=== PATIENT | male | born 1995 | race Caucasian/White ===

== ENCOUNTER → 2021-10-04 | Emergency (ER) | payer BC ==
[~2021-10-04] VITALS: Ht 180.3 cm; Wt 72.6 kg
[~2021-10-04] MED LIST: IBUP-1955 PO
--- NOTE | 2021-10-04 18:37 | NUR ---
L SIDED CHEST DISCOMFORT THAT DOES NOT RADIATE ANYWHERE, PAIN TAKING DEEP BREATHS STARTED AT 1430 WENT TO URGENT CARE AND WAS SENT HERE. PATIENT DENIES NAUSEA AND VOMITTING. PATIENT VITALS WITHIN NORMAL LIMITS. BREATHING IS EVEN AND UNLABORED. PT ATTCHED TO MONITOR. PA AT BEDSIDE.
--- NOTE | 2021-10-04 18:41 | NUR ---
#20G IV ESTABLISHED R AC. LABS WERE COLLECTED AND SENT.
--- NOTE | 2021-10-04 19:00 | NUR ---
COVID ANTIGEN COLLECTED AND SENT TO LAB
[2021-10-04 19:01] LABS: BASOPHILS % (AUTO) 0.4 % (0.0-2.0); EOSINOPHILS % (AUTO) 0.2 % (0.0-6.0); HEMATOCRIT 47 % (39-51); LYMPHOCYTES # (AUTO) 0.9 K/uL (0.8-4.8); LYMPHOCYTES % (AUTO) 12.9 % (20.0-44.0); MEAN CORPUSCULAR HGB CONC 34 g/dl (31.0-36.0); MEAN CORPUSCULAR VOLUME 97 fL (80-96); MONOCYTES # (AUTO) 0.4 K/uL (0.1-1.30); MONOCYTES % (AUTO) 5.7 % (2.0-12.0); NEUTROPHILS # (AUTO) 5.8 K/uL (1.8-8.9); NEUTROPHILS % (AUTO) 80.8 % (43.0-81.0); PLATELET COUNT (AUTO) 185 K/uL (150-450); RED BLOOD CELL COUNT(AUTO) 4.85 MIL/uL (4.5-6.0); WHITE BLOOD COUNT (AUTO) 7.2 K/uL (4.3-11.0)
--- NOTE | 2021-10-04 19:07 | NUR ---
QUARRY MANAGER AT PT'S BEDSIDE
[2021-10-04 19:12] LABS: CALCIUM, SERUM 8.9 mg/dL (8.5-10.1); CARBON DIOXIDE 30 mmol/L (21-32); CHLORIDE 104 mmol/L (98-107); CREATININE 0.8 mg/dL (0.6-1.3); GLUCOSE 92 mg/dL (74-106); POTASSIUM 4.1 mmol/L (3.5-5.1); SODIUM SERUM 143 mmol/L (136-145); UREA NITROGEN, BLOOD 11 mg/dL (7-18)
[2021-10-04 19:17] LABS: BILIRUBIN,DIRECT 0.2 mg/dL (0.0-0.2); BILIRUBIN,TOTAL 0.5 mg/dL (0.2-1.0)
[2021-10-04 19:18] LABS: ALANINE AMINOTRANSFERASE 20 U/L (12-78); ALBUMIN 4.6 g/dL (3.4-5.0); ALKALINE PHOSPHATASE 80 U/L (46-116); ASPARTATE AMINOTRANSFERASE 18 U/L (15-37); TOTAL PROTEIN, SERUM 8.4 g/dL (6.4-8.2)
--- NOTE | 2021-10-04 20:48 | NUR ---
DISCHARGE INSTRUCTIONS GIVEN TO PT. PT LEFT IN STABLE CONDITION
[2021-10-04 20:52] VITALS: BP 134/83
== END | disposition home or self-care (01) ==
LOC: ER 18:31
DX: R07.9 Chest pain, unspecified (principal); Z20.822 Contact with and (suspected) exposure to COVID-19
CPT/HCPCS: 36415; 71045; 80048; 80076; 83690; 84484; 85025; 87426; 93005; 99285; C9803